=== PATIENT | male | born 1980 | race Caucasian/White ===

== ENCOUNTER 2018-01-24 19:02 | Emergency (ER) | payer BC ==
--- NOTE | 2018-01-24 19:28 | EDM.PDOC ---
ED HPI GENERAL MEDICAL PROBLEM - General Chief Complaint: Upper Extremity Injury/Pain Stated Complaint: RIGHT SHOULDER PAIN Time Seen by Provider: 01/24/18 19:27 Source of Information: Reports: Patient - History of Present Illness INITIAL COMMENTS - FREE TEXT/NARRATIVE: Patient is here for evaluation of right shoulder pain. He states that he was doing handstand walks at the gym just prior to arrival when he fell and landed directly on his right shoulder. He had immediate pain. He is able to move it but has significant anterior and posterior pain with all movements. Has a history of his location several times to the shoulder. No chronic medical conditions. Shoulder Pain Score (Numeric/FACES): 4 - Related Data Allergies Allergy/AdvReac Type Severity Reaction Status Date / Time Penicillins Allergy Cannot Verified 01/24/18 19:17 Remember Home Meds: Home Meds . [No Known Home Meds] 01/24/18 [History] Past Medical History - Past Health History Medical/Surgical History: Denies Medical/Surgical History Social & Family History - Family History Family Medical History: Noncontributory - Tobacco Use Smoking Status *Q: Never Smoker - Caffeine Use Caffeine Use: Reports: Coffee Other Caffeine Use: Daily - Recreational Drug Use Recreational Drug Use: No Review of Systems - Review of Systems Review Of Systems: See Below Constitutional: Reports: No Symptoms Musculoskeletal: Reports: Shoulder Pain (Right, anterior/posterior). Denies: Neck Pain, Arm Pain, Joint Swelling Skin: Reports: No Symptoms Neurological: Reports: No Symptoms ED EXAM, GENERAL - Physical Exam Exam: See Below Exam Limited By: No Limitations General Appearance: Alert, WD/WN, No Apparent Distress Peripheral Pulses: 2+: Radial (R) Extremities: Normal Inspection, Other (Right shoulder without obvious ecchymosis or deformity.He has limited range of motion due to pain. He is tender to anterior joint space. Posteriorly he is tender mostly trapezius muscle.) Neurological: Alert, Oriented, No Motor/Sensory Deficits Skin Exam: Warm, Dry, Intact Course - Vital Signs Last Recorded V/S: Last Vital Signs Temp 99.1 F 01/24/18 19:15 Pulse 89 01/24/18 19:15 Resp 16 01/24/18 19:15 BP 108/85 01/24/18 19:15 Pulse Ox 96 01/24/18 19:15 - Orders/Labs/Meds Orders: Active Orders 24 hr Category Date Time Status Shoulder Comp Rt [CR] Stat Exams 01/24/18 19:31 Taken - Re-Assessments/Exams Free Text/Narrative Re-Assessment/Exam: X-ray reviewed with Dr. Quiroz, official report is pending. No fracture or dislocation appreciated. Will put patient in sling, recommend light duty at work. Discussed the need for pendulum exercises 3 times daily. Patient will follow up in clinic in one week or sooner if needed. Return to the ER if needed. 01/24/18 20:58 Departure - Departure Time of Disposition: 20:55 Disposition: Home, Self-Care 01 Condition: Good Clinical Impression: Shoulder injury Qualifiers: Encounter type: initial encounter Laterality: right Qualified Code(s): S49.91XA - Unspecified injury of right shoulder and upper arm, initial encounter - Discharge Information Instructions: Shoulder Pain, [id number] Referrals: Mami Farooq PA [Emergency Provider] - Forms: ED Department Discharge, ED Return to Work/School Form Additional Instructions: You were evaluated in the emergency room for an injury of your shoulder. This is not dislocated and fractured. I recommend that you use sling during the day, you can take this off at bedtime. Take this off 3 times during the day to do the exercises that we discussed, including complete circles, side to side and front to back movements. Ice 15 minutes on and 15 minutes off tonight. He may decrease this frequency is pain improves. Ibuprofen 800 mg 3 times a day. Follow-up with Mami Farooq PA-C in clinic [phone]) in a week if not mostly resolved or sooner if needed.. - My Orders Last 24 Hours: My Active Orders 01/24/18 19:31 Shoulder Comp Rt [CR] Stat - Assessment/Plan Last 24 Hours: My Active Orders 01/24/18 19:31 Shoulder Comp Rt [CR] Stat
--- NOTE | 2018-01-25 08:31 | CR ---
Right shoulder: Three views of the right shoulder were obtained. Comparison: No prior shoulder study. Acromioclavicular and glenohumeral joints appear within normal limits. No fracture, dislocation or other bony abnormality is seen. Impression: 1. No abnormality is identified on right shoulder study. Diagnostic code #1
== END 2018-01-24 21:20 | disposition home or self-care (01) ==
LOC: JD.ED 19:02
DX: S49.91XA Unspecified injury of right shoulder and upper arm, initial encounter (principal); Z88.0 Allergy status to penicillin; W19.XXXA Unspecified fall, initial encounter; Y92.838 Other recreation area as the place of occurrence of the external cause
CPT/HCPCS: 73030-26-RT; 73030-RT; 99284

== ENCOUNTER → 2024-06-05 | Day surgery (SDC) | payer BC ==
[~2024-06-05] MED LIST: Dexamethasone 4 MG/ML 5 ML MDV ONE; HYDROmorphone 0.5 MG/0.5 ML Syringe IVPUSH PRN; Ketorolac 30 MG/ML SDV ONE; Lidocaine 2% 5 ML SDV ONE; Midazolam 1 MG/ML 2 ML SDV ONE; Ondansetron 4 MG/2 ML SDV IVPUSH PRN; Ondansetron 4 MG/2 ML SDV ONE; Propofol 200 MG/20 ML SDV ONE; Sodium Chloride 0.9% 10 ML Syringe FLUSH PRN; Sodium Chloride 0.9% 10 ML Syringe FLUSH SCH; ceFAZolin 2 GM Vial ONE; ePHEDrine 50 MG/ML SDV ONE; fentaNYL 100 MCG/2 ML SDV IVPUSH PRN; fentaNYL 100 MCG/2 ML SDV ONE
[2024-06-05] MEDS: Lactated Ringers 1,000 ML IV SCH (08:20)
[2024-06-05] MEDS: oxyCODONE ER 10 MG TAB.ER PO ONE (08:26)
[2024-06-05] MEDS: Acetaminophen 325 MG Tab PO ONE (08:27)
[2024-06-05] MEDS: Pregabalin 25 MG Cap PO ONE (08:27)
[2024-06-05] MEDS: Famotidine 20 MG/2 ML SDV IVPUSH SCH (08:54)
[2024-06-05] MEDS: Morphine 8 MG, EPINEPHrine 0.3 MG, Cefuroxime 750 MG, Ketorolac 30 MG, Sodium Chloride ... PRN (11:01)
[2024-06-05] MEDS: Tranexamic Acid 1,000 MG/10 ML Vial ONE (11:01)
[2024-06-05] MEDS: Vancomycin 1 GM SDV ONE (11:01)
[2024-06-05] MEDS: oxyCODONE 5 MG Tab PO PRN (13:46)
== END | disposition home or self-care (01) ==
LOC: JD.SDS 07:56
PROVIDERS: ATTEND Orthopaedic Surgery
DX: M16.11 Unilateral primary osteoarthritis, right hip (principal); F17.220 Nicotine dependence, chewing tobacco, uncomplicated; Z88.0 Allergy status to penicillin
CPT/HCPCS: 0055T; 27130; 36415; 73501; 86850; 86900; 86901; 97116; 97161; A9270; C1713; C1776; J0171; J0690; J0697; J1100; J1885; J2250; J2270; J2405; J2704; J3010; J3370; J3490; J7120; 01214; J2272